=== PATIENT | male | born 1940 | race Caucasian/White ===

== ENCOUNTER 2016-08-22 01:38 | Emergency (ER) | payer MEDICARE ==
[~2016-08-22] VITALS: Ht 170.2 cm; Wt 104.0 kg
[~2016-08-22 01:38] MED LIST: ALBU1AER INH; ATEN-100 PO; ATOR20TA42 PO; DOXA1 PO; FURO10S PO; IBUP-238 PO; MIRA0.5T PO; OMEP20TA39 PO; POTA-267 PO; SPIR50TA21 PO; [UNRECOGNIZED DRUG - CODE] IM
[2016-08-22 01:40] VITALS: BP 183/81; PULSE 70; RESP 18; TEMP 98; O2SAT 96
[2016-08-22 05:50] VITALS: BP 149/74; PULSE 55; RESP 18; TEMP 98.1; O2SAT 96
[2016-08-23] MEDS ORDERED: ATOR20TA15 PO (07:12)
[2016-08-23] MEDS ORDERED: ATEN25TA PO (07:12)
[2016-08-23] MEDS ORDERED: DOXA1TAB43 PO (07:12)
[2016-08-23] MEDS ORDERED: SPIR50TA PO (07:12)
[2016-08-23] MEDS ORDERED: FURO20TA PO (07:12)
[2016-08-23] MEDS ORDERED: POTA10TA2 PO (07:12)
[2016-08-23] MEDS ORDERED: PRAM1TAB PO (07:12)
== END 2016-08-22 07:15 | disposition left against medical advice (07) ==
LOC: NED 01:38
DX: Z53.21 Procedure and treatment not carried out due to patient leaving prior to being seen by health care provider (principal)
CPT/HCPCS: 99281

== ENCOUNTER 2016-08-23 06:28 | Observation (INO) | payer MEDICARE ==
[~2016-08-23] VITALS: Ht 170.2 cm; Wt 110.0 kg
[2016-08-23] VITALS (9 sets, daily range): BP systolic 113–171; BP diastolic 69–95; PULSE 60–88; RESP 16–20; TEMP 97.4–99; O2SAT 93–100
[2016-08-23] MEDS ORDERED: PRAM1TAB PO (07:12)
[2016-08-23] MEDS ORDERED: ATEN25TA PO (07:12)
[2016-08-23] MEDS ORDERED: ATOR20TA15 PO (07:12)
[2016-08-23] MEDS ORDERED: DOXA1TAB43 PO (07:12)
[2016-08-23] MEDS ORDERED: SPIR50TA PO (07:12)
[2016-08-23] MEDS ORDERED: FURO20TA PO (07:12)
[2016-08-23] MEDS ORDERED: POTA10TA2 PO (07:12)
[2016-08-23] MEDS ORDERED: SODIUM CHLOR 0.9% 1000 ML INJ 1,000 ML IV ONE (07:16)
--- NOTE | 2016-08-23 07:29 | PD ---
HPI Chief Complaint: Syncope/Near-Syncope Time Seen by Provider: 07:07 Travel History International Travel<30 days: No Contact w/Intl Traveler<30days: No Traveled to known affect area: No History of Present Illness HPI Patient is a 75-year-old male with history of hypertension and hyperlipidemia and prostate cancer (on Lupron 4x per yaer) who presents to emergency room with complaints of multiple episodes syncopal episodes. Patient reports that over the past 3 weeks, he has had multiple episodes of syncope. Patient reports that episodes have been progressively getting worse, reports that he had 10 syncopal episodes last night. Patient reports that last night, he had a syncopal episode and fell and hit his head and his left hip. Patient reports that now his left hip hurts him, reports that he is able to ambulate only with pain with range of motion to his left hip. Reports that he is not on any anticoagulation. Reports that he did follow up with his primary care doctor and patient due to his syncopal episodes due to medication, reports that he was on Pramapixol for Restless Leg Syndrome. Reports that his primary care doctor stopped his pramipexole which he has been taking for the past few years and changed him to gabapentin yesterday. Patient concerned as his symptoms are more often and getting progressively worse. Patient denies headache or dizziness or vision changes with this symptoms, denies chest pain or shortness of breath. Patient denies any abdominal pain or nausea or vomiting. Patient with no fevers or chills. Patient with no recent travels or trips. PFSH Past Medical History Cancer: Yes (PROSTATE) Cardiovascular Problems: Yes (HTN) High Cholesterol: Yes Diabetes: No Diminished Hearing: No Endocrine: No Gastrointestinal Disorders: Yes (GERD) Genitourinary: Yes (PROSTATE CANCER) Hepatitis: No Hiatal Hernia: Yes (REPAIRED) Hypertension: Yes Immune Disorder: No Medical other: No Musculoskeletal: Yes (BACK SX, ARTHRITIS) Neurologic: No Psychiatric: No Reproductive: No Respiratory: Yes (SLEEP APNEA/ CPAP) Immunizations Current: Yes Thyroid Disease: No ?: Not Past Surgical History AICD: No Eye Surgery: Yes (EMMA. CATARACT EXTRACT.) Genitourinary Surgery: Yes (PROSTATE BX 2011) Joint Replacement: No Neurologic Surgery: Yes (L4-3 SPUR EXC.) Pacemaker: No Tonsillectomy: Yes Other Surgery: Yes (HIATAL HERNIA, PILONIDAL CYST) Social History Alcohol Use: Yes (1 GLASS OF WINE DAILY) Tobacco Use: No Substance Use: No Allergies-Medications (Allergen,Severity, Reaction): Coded Allergies: Penicillin (Verified Allergy, Severe, Rash, 08/23/16) SWELLING HANDS Reported Meds & Prescriptions Reported Meds & Active Scripts Active Reported Pramipexole (Pramipexole Dihydrochloride) 1 Mg Tab 1 Mg PO HS Atenolol 25 Mg Tab 25 Mg PO DAILY Doxazosin (Doxazosin Mesylate) 8 Mg Tab 8 Mg PO DAILY Atorvastatin (Atorvastatin Calcium) 20 Mg Tab 20 Mg PO HS Furosemide 20 Mg Tab 20 Mg PO BID Potassium Chloride ER (Potassium Chloride) 10 Meq Tab 10 Meq PO BID Spironolactone 50 Mg Tab 50 Mg PO DAILY Review of Systems General / Constitutional: No: Fever Eyes: No: Visual changes HENT: No: Headaches Cardiovascular: No: Chest Pain or Discomfort, Palpitations, Tachycardia, Diaphoresis Respiratory: No: Shortness of Breath Gastrointestinal: No: Nausea, Vomiting, Diarrhea, Abdominal Pain Genitourinary: No: Urgency, Frequency, Dysuria Musculoskeletal: Positive: Limited ROM (left hip), Pain (left hip) Skin: No Rash Neurologic: Positive: Syncope, No: Weakness Psychiatric: No: Depression Endocrine: No: Polydipsia Hematologic/Lymphatic: No: Easy Bruising Physical Exam Narrative GENERAL: NAD, Nontoxic SKIN: Warm and dry. HEAD: Atraumatic. Normocephalic. EYES: Pupils equal and round. No scleral icterus. No injection or drainage. ENT: No nasal bleeding or discharge. Mucous membranes pink and moist. NECK: Trachea midline. No JVD. CARDIOVASCULAR: Regular rate and rhythm. No murmur appreciated. RESPIRATORY: No accessory muscle use. Clear to auscultation. Breath sounds equal bilaterally. GASTROINTESTINAL: Abdomen soft, non-tender, nondistended. Hepatic and splenic margins not palpable. MUSCULOSKELETAL: No obvious deformities. No clubbing. No cyanosis. No edema. Patient with pain with range of motion to left hip, patient does have a bruise to his left lateral hip, no obvious deformities, pulses intact. Right lower extremity: Normal range of motion NEUROLOGICAL: Awake and alert. No obvious cranial nerve deficits. Motor grossly within normal limits. Normal speech. PSYCHIATRIC: Appropriate mood and affect; insight and judgment normal. Data Data Last Documented VS Vital Signs Date Time Temp Pulse Resp B/P Pulse Ox O2 Delivery O2 Flow Rate FiO2 08/23/16 07:31 71 18 139/76 100 Room Air 08/23/16 06:35 99.0 Orders Electrocardiogram (08/23/16 07:16) Complete Blood Count With Diff (08/23/16 07:16) Comprehensive Metabolic Panel (08/23/16 07:16) Magnesium (Mg) (08/23/16 07:16) B-Type Natriuretic Peptide (08/23/16 07:16) Ckmb (Isoenzyme) Profile (08/23/16 07:16) Troponin I (08/23/16 07:16) Act Partial Throm Time (Ptt) (08/23/16 07:16) Prothrombin Time / Inr (Pt) (08/23/16 07:16) Urinalysis - C+S If Indicated (08/23/16 07:16) Chest, Single Ap (08/23/16 07:16) Ct Brain W/O Iv Contrast(Rout) (08/23/16 07:16) Ecg Monitoring (08/23/16 07:16) Iv Access Insert/Monitor (08/23/16 07:16) Oximetry (08/23/16 07:16) Sodium Chloride 0.9% Flush (Ns Flush) (08/23/16 07:30) Sodium Chlor 0.9% 1000 Ml Inj (Ns 1000 M (08/23/16 07:16) Morphine Inj (Morphine Inj) (08/23/16 07:30) Hip, Uni(Ap&Lat) W Ap Pelvis (08/23/16 ) CKMB (08/23/16 07:54) CKMB% (08/23/16 07:54) Aspirin (Aspirin) (08/23/16 08:45) Labs Laboratory Tests Test 08/23/16 08/23/16 07:43 07:54 Urine Collection Type CLEAN CATCH Urine Color YELLOW Urine Turbidity CLEAR Urine pH 6.0 Urine Specific [place] 1.012 Urine Protein NEG mg/dL Urine Glucose (UA) NEG mg/dL Urine Ketones NEG mg/dL Urine Occult Blood TRACE Urine Nitrite NEG Urine Bilirubin NEG Urine Leukocyte Esterase NEG Urine RBC 0-3 /hpf Urine Squamous Epithelial 0-5 /hpf Cells Microscopic Urinalysis Comment CULT NOT INDICATED White Blood Count 10.9 TH/MM3 Red Blood Count 4.79 MIL/MM3 Hemoglobin 14.3 GM/DL Hematocrit 42.6 % Mean Corpuscular Volume 88.9 FL Mean Corpuscular Hemoglobin 29.9 PG Mean Corpuscular Hemoglobin 33.6 % Concent Red Cell Distribution Width 15.4 % Platelet Count 288 TH/MM3 Mean Platelet Volume 7.9 FL Neutrophils (%) (Auto) 74.4 % Lymphocytes (%) (Auto) 14.5 % Monocytes (%) (Auto) 7.1 % Eosinophils (%) (Auto) 1.8 % Basophils (%) (Auto) 2.2 % Neutrophils # (Auto) 8.1 TH/MM3 Lymphocytes # (Auto) 1.6 TH/MM3 Monocytes # (Auto) 0.8 TH/MM3 Eosinophils # (Auto) 0.2 TH/MM3 Basophils # (Auto) 0.2 TH/MM3 CBC Comment DIFF FINAL Differential Comment Prothrombin Time 10.4 SEC Prothromb Time International 0.9 RATIO Ratio Activated Partial 25.4 SEC Thromboplast Time Sodium Level 138 MEQ/L Potassium Level 4.8 MEQ/L Chloride Level 106 MEQ/L Carbon Dioxide Level 23.1 MEQ/L Anion Gap 9 MEQ/L Blood Urea Nitrogen 12 MG/DL Creatinine 1.10 MG/DL Estimat Glomerular Filtration 65 ML/MIN Rate Random Glucose 115 MG/DL Calcium Level 8.8 MG/DL Magnesium Level 2.6 MG/DL Total Bilirubin 0.4 MG/DL Aspartate Amino Transf 37 U/L (AST/SGOT) Alanine Aminotransferase 47 U/L (ALT/SGPT) Alkaline Phosphatase 112 U/L Total Creatine Kinase 157 U/L Creatine Kinase MB 2.4 NG/ML Troponin I LESS THAN 0.02 NG/ML B-Type Natriuretic Peptide 49 PG/ML Total Protein 6.6 GM/DL Albumin 3.4 GM/DL MDM Medical Decision Making Medical Screen Exam Complete: Yes Emergency Medical Condition: Yes Interpretation(s) EKG at 0807: NSR at 77bpm, qt/qtc: 376/405, no acute st changes, t wave inversion V1-V2 (EKG similar to previous) Vital Signs Date Time Temp Pulse Resp B/P Pulse Ox O2 Delivery O2 Flow Rate FiO2 08/23/16 07:03 77 16 142/85 97 08/23/16 06:35 99.0 88 16 123/77 96 Room Air Differential Diagnosis ACS, arrhythmia, electrolyte abnormality, intracranial hemorrhage, TIA, hip fracture Narrative Course Patient is a 75-year-old male with history of hypertension and hyperlipidemia who presents to emergency room with complaints of multiple episodes syncopal episodes for the past few weeks. Patient reports that he had 10 syncopal episodes last night and fell and hit his head and left hip. Patient reports concern as symptoms have been more frequent. Patient did follow up with primary care doctor and concern was that symptoms were due to medications which he was taken for the past few years. His medications were changed yesterday but patient reports that he continues to have episodes of syncope. Patient here for evaluation of syncope. Patient was placed on a cardiac cath rn upon arrival to the emergency room. EKG , labs as well as cardiac enzymes and x-ray of ct of head ordered for evaluation of symptoms. X-ray of his left hip ordered for evaluation of possible fracture as patient reports pain to left hip after fall yesterday. Physician Communication Physician Communication Case reviewed with Dr. Quinones - annemarie pt to service Diagnosis Primary Impression: Syncope and collapse Admitting Information Admitting Physician Requests: Observation Tammy Ocampo DO Aug 23, 2016 07:28
[2016-08-23] MEDS ORDERED: MORPHINE SULFATE 4 MG/ML INJ IV PUSH ONE (07:30)
[2016-08-23] MEDS ORDERED: SODIUM CHLORIDE 0.9% FLUSH 5 ML FLUSH IVF PRN (07:30)
[2016-08-23 07:49] LABS: BLOOD, URINE TRACE (NEG); GLUCOSE,URINE NEG (NEG); KETONE, URINE NEG (NEG); NITRITE,URINE NEG (NEG)
[2016-08-23 07:51] LABS: METHOD OF COLLECTION CLEAN CATCH; URINE COLOR YELLOW (YELLW/STRAW)
[2016-08-23 07:53] LABS: COMMENT (UR) CULT NOT INDICATED; CULTURE IF INDICATED CULT NOT INDICATED; RBC, URINE 0-3 /hpf (0-3); SQUAMOUS EPITHELIAL CELL URINE 0-5 /hpf (0-5)
--- NOTE | 2016-08-23 08:00 | RADHPO ---
EXAM DATE/TIME: 08/23/2016 07:29 [facility] COMPARISON: No previous studies available for comparison. INDICATIONS : Syncopal episode. Recent multiple falls. RADIATION DOSE: 60.87 CTDIvol (mGy) MEDICAL HISTORY : Hypertension. Gastroesophageal reflux disease. Carcinoma, prostate. SURGICAL HISTORY : Hiatal hernia repair. ENCOUNTER: Initial ACUITY: 1 day PAIN SCALE: 0/10 LOCATION: cranial TECHNIQUE: Multiple contiguous axial images were obtained of the head. Using automated exposure control and adj ustment of the mA and/or kV according to patient size, radiation dose was kept as low as reasonably a chievable to obtain optimal diagnostic quality images. FINDINGS: CEREBRUM: The ventricles are normal for age. No evidence of midline shift, mass lesion, hemorrhage or acute in farction. No extra-axial fluid collections are seen. POSTERIOR FOSSA: The cerebellum and brainstem are intact. The 4th ventricle is midline. The cerebellopontine angle i s unremarkable. EXTRACRANIAL: The visualized portion of the orbits is intact. There are multiple tiny calcified nodules within the left ethmoid air cells measuring 4 mm, right ethmoid air cells measuring 6 mm and left frontal sinus measuring 6 mm consistent with probable osteomas. SKULL: The calvaria is intact. No evidence of skull fracture. CONCLUSION: 1. No acute intracranial abnormality. 2. Multiple tiny calcified nodules within the bilateral ethmoid air cells and left frontal sinus rang ing in size from 4 to 6 mm consistent with probable osteomas. Naif Christine MD on August 23, 2016 at 7:55 Board Certified Radiologist. This report was verified electronically.
[2016-08-23 08:08] LABS: AUTOMATED NEUTROPHIL # 8.1 TH/MM3 (1.8-7.7); BASOPHIL # 0.2 TH/MM3 (0-0.2); BASOPHIL % 2.2 % (0.0-2.0); EOSINOPHIL # 0.2 TH/MM3 (0-0.4); EOSINOPHIL % 1.8 % (0.0-4.0); HEMATOCRIT 42.6 % (39.0-51.0); HEMO FLAGS DIFF FINAL; LYMPH % 14.5 % (9.0-44.0); LYMPHOCYTE # 1.6 TH/MM3 (1.0-4.8); MEAN CELL VOLUME 88.9 FL (80.0-100.0); MEAN CORPUSCULAR HEMOGLOBIN 29.9 PG (27.0-34.0); MEAN CORPUSCULAR HGB CONC 33.6 % (32.0-36.0); MONO % 7.1 % (0.0-8.0); NEUT % 74.4 % (16.0-70.0); PLATELET COUNT 288 TH/MM3 (150-450); RED BLOOD COUNT 4.79 MIL/MM3 (4.50-5.90); RED CELL DISTRIBUTION WIDTH 15.4 % (11.6-17.2); WHITE BLOOD COUNT 10.9 TH/MM3 (4.0-11.0)
[2016-08-23 08:13] LABS: CHLORIDE 106 MEQ/L (98-107); SODIUM (NA) 138 MEQ/L (136-145)
[2016-08-23 08:17] LABS: ANION GAP 9 MEQ/L (5-15); APTT (PATIENT) 25.4 SEC (24.3-30.1); BICARBONATE 23.1 MEQ/L (21.0-32.0); BLOOD UREA NITROGEN 12 MG/DL (7-18); INTERNATIONAL NORMALIZED RATIO 0.9 RATIO; MAGNESIUM 2.6 MG/DL (1.5-2.5); PROTHROMBIN TIME - PATIENT 10.4 SEC (9.8-11.6)
[2016-08-23 08:20] LABS: ALT (GPT) 47 U/L (12-78); AST (GOT) 37 U/L (15-37); GLOMERULAR FILTRATION RATE 65 ML/MIN (>89); POTASSIUM 4.8 MEQ/L (3.5-5.1)
[2016-08-23 08:24] LABS: TOTAL BILIRUBIN ADULT 0.4 MG/DL (0.2-1.0)
[2016-08-23 08:25] LABS: ALKALINE PHOSPHATASE 112 U/L (45-117); CREATINE KINASE 157 U/L (39-308)
[2016-08-23 08:37] LABS: CKMB 2.4 NG/ML (0.5-3.6)
[2016-08-23] MEDS ORDERED: ASPIRIN 325 MG TAB PO ONE (08:45)
--- NOTE | 2016-08-23 09:14 | RADHPO ---
EXAM DATE/TIME: 08/23/2016 07:41 [facility] COMPARISON: No previous studies available for comparison. INDICATIONS : Syncope, fell last night, pain left hip joint MEDICAL HISTORY : Hiatal hernia. SURGICAL HISTORY : right hip replacement ENCOUNTER: Initial ACUITY: 1 day PAIN SCORE: 8/10 LOCATION: Left hip FINDINGS: Examination of the left hip was performed with AP Pelvis. The primary and secondary trabecular patte rn of the femoral neck is intact. The hip joint is of normal width without significant sclerosis or bony hypertrophy. The acetabulum is grossly intact. There is diffuse osteopenia. The patient is stat us post right hip arthroplasty. CONCLUSION: Osteopenia with no acute fracture or malalignment. Shun Newberry MD on August 23, 2016 at 9:11 Board Certified Radiologist. This report was verified electronically.
--- NOTE | 2016-08-23 09:15 | RADHPO ---
EXAM DATE/TIME: 08/23/2016 07:39 [facility] COMPARISON: CHEST SINGLE AP, April 26, 2014, 1:08. INDICATIONS : Syncope, fall last night, short of breath MEDICAL HISTORY : Hiatal hernia. SURGICAL HISTORY : right hip replacement ENCOUNTER: Initial ACUITY: 1 day PAIN SCORE: 0/10 LOCATION: Bilateral chest FINDINGS: A single view of the chest demonstrates the lungs to be symmetrically aerated without evidence of mas s, infiltrate or effusion. The cardiomediastinal contours are unremarkable. Osseous structures are intact. CONCLUSION: No acute disease. Shun Newberry MD on August 23, 2016 at 9:13 Board Certified Radiologist. This report was verified electronically.
[2016-08-23] MEDS ORDERED: SODIUM CHLORIDE 0.9% FLUSH 5 ML FLUSH IV PRN (09:45)
[2016-08-23] MEDS: SODIUM CHLOR 0.9% 1000 ML INJ 1,000 ML IV SCH ×2 (11:12→12:51)
[2016-08-23 11:35] LABS: CHLORIDE 109 MEQ/L (98-107); POTASSIUM 4.2 MEQ/L (3.5-5.1); SODIUM (NA) 141 MEQ/L (136-145)
[2016-08-23 11:39] LABS: ANION GAP 8 MEQ/L (5-15); BICARBONATE 24.2 MEQ/L (21.0-32.0)
--- NOTE | 2016-08-23 11:39 | RADHPO ---
EXAM DATE/TIME: 08/23/2016 10:30 [facility] COMPARISON: CTA CHEST W 3D RECON, September 24, 2012, 4:48. INDICATIONS : Syncope. MEDICAL HISTORY : Hypertension. Gastroesophageal reflux disease. Hypercholesterolemia. Sleep apnea. Prostate cancer. Ar thritis. SURGICAL HISTORY : Tonsillectomy. Cataract removal. L3-4 spur extraction. Hiatal hernia repair. Prostate biopsy. Rig ht hip replacement. Pilonidal cyst removal. ENCOUNTER: Initial ACUITY: 1 week PAIN SCORE: 0/10 LOCATION: Bilateral neck PEAK SYSTOLIC VELOCITIES (cm/sec): ICA/CCA RATIO: Right: 1.3 Left: 1.3 ICA: Right: 90 Left: 79 CCA: Right: 71 Left: 60 ECA: Right: 99 Left: 89 VERTEBRAL: Right: 56 antegrade Left: 52 antegrade Elevated flow velocities and ICA/CCA ratios have been found to correlate with increased degrees of vessel stenosis, calculated as percentage of diameter relative to a normal segment of distal ICA/CCA FINDINGS: Suboptimal examination due to 2 continued motion artifact. RIGHT CAROTID: Mild plaque is present in the right carotid bulb with no evidence of stenosis. The waveforms are with in normal limits. LEFT CAROTID: No significant stenosis is visualized. The waveforms are within normal limits. VERTEBRAL ARTERIES: Antegrade flow is seen in both vertebral arteries. MISCELLANEOUS: Rounded hyperechoic mass in the left lobe of the thyroid gland measuring up to 1.9 x 2.1 cm with aure pheral color flow. This was seen on the prior chest CT and measured up to 1.7 cm. CONCLUSION: 1. Mild plaquing with no evidence of stenosis. 2. Mass in left lobe of the thyroid which appears more prominent than on the prior 2013 CT angiogram. This is nonspecific. Shun Newberry MD on August 23, 2016 at 11:35 Board Certified Radiologist. This report was verified electronically.
[2016-08-23 11:40] LABS: BLOOD UREA NITROGEN 11 MG/DL (7-18)
[2016-08-23 11:42] LABS: ALT (GPT) 39 U/L (12-78); AST (GOT) 21 U/L (15-37)
[2016-08-23 11:43] LABS: GLOMERULAR FILTRATION RATE 81 ML/MIN (>89)
[2016-08-23 11:44] LABS: TOTAL BILIRUBIN ADULT 0.3 MG/DL (0.2-1.0)
[2016-08-23 11:45] LABS: ALKALINE PHOSPHATASE 105 U/L (45-117)
[2016-08-23] MEDS ORDERED: GADODIAMIDE PF 287 MG/ML 20 ML VIAL (for RAD MRI) IV ONE (11:53)
--- NOTE | 2016-08-23 12:12 | RADHPO ---
EXAM DATE/TIME: 08/23/2016 11:46 [facility] COMPARISON: No previous studies available for comparison. INDICATIONS : Syncope. Patient claims to have around 30 syncopal episodes per night for the last two weeks. CONTRAST: 20 cc Omniscan (gadodiamide) IV MEDICAL HISTORY : Hypertension. Hypercholesterolemia. SURGICAL HISTORY : Right hip, right knee, hiatal hernia repair, back surgery and TURP. ENCOUNTER: Initial ACUITY: 2 weeks PAIN SCORE: 0/10 LOCATION: Head. TECHNIQUE: Multiplanar, multisequence MRI of the brain was performed both prior to and following the administrat ion of paramagnetic contrast. Please note, image sequences are somewhat degraded by motion artifact b ut are still interpretable. FINDINGS: CEREBRUM: The ventricles are normal for age. No evidence of midline shift, mass lesion, hemorrhage or acute in farction. No extraaxial fluid collections are seen. The pituitary gland and suprasellar cistern are normal in configuration. WHITE MATTER: No significant signal abnormalities are seen in the white matter. POSTERIOR FOSSA: The cerebellum and brainstem are intact. The 4th ventricle is midline. The cerebellopontine angle is unremarkable. The cerebellar tonsils are normal in position. DIFFUSION IMAGING: No focal areas of restricted diffusion are seen. No evidence of acute infarction. EXTRACRANIAL: The visualized portions of the orbits and paranasal sinuses are unremarkable. POST-CONTRAST: No abnormal areas of parenchymal or dural enhancement. No evidence of blood-brain barrier breakdown. CONCLUSION: No acute intracranial process to explain clinical symptoms there is no free Sco from the Elizabeth Pena MD on August 23, 2016 at 12:08 Board Certified Radiologist. This report was verified electronically.
--- NOTE | 2016-08-23 13:42 | EKG ---
Date Performed: 08/23/2016 Time Performed: 08:07:34 PTAGE: 75 years EKG: BASELINE ARTIFACT PRESENT. Sinus rhythm Septal T wave changes are nonspecific Borderline ECG NO PREVIOUS TRACING DOCTOR: James Chapman Interpretating Date/Time 08/23/2016 13:40:08
[2016-08-23] MEDS: SODIUM CHLORIDE 0.9% FLUSH 5 ML FLUSH IV SCH (21:00)
[2016-08-23] MEDS: ATORVASTATIN 20 MG TAB PO SCH (21:38)
[2016-08-24] VITALS: BP 128/78; PULSE 65; RESP 18; TEMP 97.8; O2SAT 97
[2016-08-24] MEDS: SODIUM CHLOR 0.9% 1000 ML INJ 1,000 ML IV SCH ×2 (05:36→08:51)
[2016-08-24 05:47] LABS: AUTOMATED NEUTROPHIL # 5.9 TH/MM3 (1.8-7.7); BASOPHIL % 0.5 % (0.0-2.0); EOSINOPHIL # 0.2 TH/MM3 (0-0.4); EOSINOPHIL % 2.8 % (0.0-4.0); HEMATOCRIT 43.2 % (39.0-51.0); HEMO FLAGS DIFF FINAL; LYMPH % 22.5 % (9.0-44.0); LYMPHOCYTE # 1.9 TH/MM3 (1.0-4.8); MEAN CELL VOLUME 90.2 FL (80.0-100.0); MEAN CORPUSCULAR HEMOGLOBIN 30.5 PG (27.0-34.0); MEAN CORPUSCULAR HGB CONC 33.8 % (32.0-36.0); MONO % 7.2 % (0.0-8.0); PLATELET COUNT 287 TH/MM3 (150-450); RED BLOOD COUNT 4.79 MIL/MM3 (4.50-5.90); RED CELL DISTRIBUTION WIDTH 15.1 % (11.6-17.2); WHITE BLOOD COUNT 8.6 TH/MM3 (4.0-11.0)
[2016-08-24 08:00] VITALS: BP_SYST 123; BP_SYST 125; BP_DIAS 79; BP_DIAS 92; PULSE 65; PULSE 85; RESP 20; TEMP 97.3; O2SAT 99
[2016-08-24] MEDS: ATENOLOL 25 MG TAB PO SCH (08:50)
[2016-08-24] MEDS: POTASSIUM CHLORIDE 10 MEQ CONTROLLED RELEASE TAB PO SCH ×2 (08:50→20:59)
[2016-08-24] MEDS: SPIRONOLACTONE 50 MG TAB PO SCH (08:50)
[2016-08-24] MEDS: SODIUM CHLORIDE 0.9% FLUSH 5 ML FLUSH IV SCH ×2 (08:50→20:59)
[2016-08-24] MEDS: DOXAZOSIN MESYLATE 4 MG TAB PO SCH (08:50)
[2016-08-24] MEDS: FUROSEMIDE 20 MG TAB PO SCH ×2 (08:50→20:59)
[2016-08-24 12:00] VITALS: BP 125/89; PULSE 77; RESP 18; TEMP 97.6; O2SAT 98
--- NOTE | 2016-08-24 15:01 | EC ---
Study Study Date:08/24/2016 STUDY CONCLUSIONS SUMMARY - Left ventricle: The cavity size was normal. Wall thickness was normal. Systolic function was mildly reduced. The estimated ejection fraction was in the range of 45% to 50%. Wall motion was normal; there were no regional wall motion abnormalities. - Aortic valve: Valve area: 2.77cm^2 (Vmax). - Mitral valve: Mild regurgitation. - Tricuspid valve: Mild regurgitation. If LV function is below 40, please consider prescribing an ACEI or ARB or document rationale for non-use. PROCEDURE DATA STUDY STATUS: Elective. Procedure: Transthoracic echocardiography. Image quality was good. Scanning was performed from the parasternal, apical, and subcostal acoustic windows. Study completion: The patient tolerated the procedure well. Transthoracic echocardiography. M-mode, complete 2D, complete spectral Doppler, and color Doppler. Patient status: Inpatient. CARDIAC ANATOMY LEFT VENTRICLE: The cavity size was normal. Wall thickness was normal. Systolic function was mildly reduced. The estimated ejection fraction was in the range of 45% to 50%. Wall motion was normal; there were no regional wall motion abnormalities. AORTIC VALVE: Trileaflet; normal thickness leaflets. Doppler: Transvalvular velocity was within the normal range. There was no stenosis. No regurgitation. Valve area: 2.77cm^2 (Vmax). AORTA: Aortic root: The aortic root was normal in size. MITRAL VALVE: Structurally normal valve. Doppler: Transvalvular velocity was within the normal range. There was no evidence for stenosis. Mild regurgitation. Peak gradient: 3mm Hg (D). LEFT ATRIUM: The atrium was normal in size. RIGHT VENTRICLE: The cavity size was normal. Wall thickness was normal. PULMONIC VALVE: Doppler: Transvalvular velocity was within the normal range. There was no evidence for stenosis. No regurgitation. TRICUSPID VALVE: Structurally normal valve. Doppler: Transvalvular velocity was within the normal range. Mild regurgitation. PULMONARY ARTERY: The main pulmonary artery was normal-sized. Systolic pressure was within the normal range. RIGHT ATRIUM: The atrium was normal in size. PERICARDIUM: There was no pericardial effusion. SYSTEMIC VEINS: Inferior vena cava: The vessel was normal in size. BASIC MEASUREMENTS ADULT NORMAL Left ventricle LV internal dimension, ED, chordal level, 49.5 mm 43-52 PLAX LV internal dimension, ES, chordal level, *40.3 mm 23-38 PLAX Fractional shortening, chordal level, PLAX *19 % >29 LV posterior wall thickness, ED 9.52 mm IVS/LVPW ratio, ED 0.99 <1.3 Ventricular septum Septal thickness, ED 9.45 mm Aortic valve Leaflet separation 21 mm 15-26 BASIC MEASUREMENTS ADULT NORMAL Aortic valve Leaflet separation 21 mm 15-26 Aorta Root diameter, ED 25 mm 20-37 Left atrium Anterior-posterior dimension, ES 38 mm 19-40 LA/aortic root ratio 1.52 DOPPLER MEASUREMENTS ADULT NORMAL Main pulmonary artery Pressure, S 29 mm Hg =30 Aortic valve Peak velocity, S 137 cm/s Valve area, Vmax 2.77 cm^2 Mitral valve Peak E-wave velocity 88.8 cm/s Peak A-wave velocity 110 cm/s Deceleration time 165 ms 150-230 Peak gradient, D 3 mm Hg Peak E/A ratio 0.8 Maximal regurgitant velocity 235 cm/s Tricuspid valve Regurgitant peak velocity 216 cm/s Peak RV-RA gradient, S 19 mm Hg Maximal regurgitant velocity 216 cm/s Systemic veins Estimated CVP 10 mm Hg Right ventricle RV pressure, S 29 mm Hg <30 LEGEND: Mean values are shown as u=mean value. Asterisk (*) negron values outside specified normal range. Prepared and signed by Tuan Cárdenas [id number]
[2016-08-24 16:00] VITALS: BP 148/83; PULSE 56; RESP 16; TEMP 96.5; O2SAT 96
[2016-08-24] MEDS: ACETAMINOPHEN/HYDROcodone 325 MG/5 MG TAB PO PRN (16:16)
[2016-08-24 20:00] VITALS: BP_SYST 139; BP_SYST 140; BP_SYST 169; BP_DIAS 64; BP_DIAS 89; BP_DIAS 90; PULSE 57; PULSE 60; RESP 20; TEMP 98.1; O2SAT 97
[2016-08-24] MEDS: ATORVASTATIN 20 MG TAB PO SCH (20:59)
[2016-08-25] VITALS (10 sets, daily range): BP systolic 142–189; BP diastolic 79–93; PULSE 55–70; RESP 16–20; TEMP 97–98.6; O2SAT 94–97
[2016-08-25] MEDS: ACETAMINOPHEN/HYDROcodone 325 MG/5 MG TAB PO PRN ×3 (00:31→21:27)
[2016-08-25 07:48] LABS: AUTOMATED NEUTROPHIL # 4.8 TH/MM3 (1.8-7.7); BASOPHIL % 0.6 % (0.0-2.0); EOSINOPHIL # 0.3 TH/MM3 (0-0.4); EOSINOPHIL % 4.1 % (0.0-4.0); HEMATOCRIT 42.8 % (39.0-51.0); HEMO FLAGS DIFF FINAL; LYMPH % 25.8 % (9.0-44.0); MEAN CORPUSCULAR HEMOGLOBIN 29.5 PG (27.0-34.0); MEAN CORPUSCULAR HGB CONC 32.8 % (32.0-36.0); MONO % 6.4 % (0.0-8.0); NEUT % 63.1 % (16.0-70.0); PLATELET COUNT 291 TH/MM3 (150-450); RED BLOOD COUNT 4.76 MIL/MM3 (4.50-5.90); RED CELL DISTRIBUTION WIDTH 15.6 % (11.6-17.2); WHITE BLOOD COUNT 7.6 TH/MM3 (4.0-11.0)
[2016-08-25 07:56] LABS: CHLORIDE 108 MEQ/L (98-107); POTASSIUM 4.1 MEQ/L (3.5-5.1); SODIUM (NA) 143 MEQ/L (136-145)
[2016-08-25 08:00] LABS: ANION GAP 9 MEQ/L (5-15); BICARBONATE 25.9 MEQ/L (21.0-32.0)
[2016-08-25 08:01] LABS: BLOOD UREA NITROGEN 12 MG/DL (7-18)
[2016-08-25 08:03] LABS: ALT (GPT) 43 U/L (12-78); AST (GOT) 20 U/L (15-37); GLOMERULAR FILTRATION RATE 85 ML/MIN (>89)
[2016-08-25 08:05] LABS: TOTAL BILIRUBIN ADULT 0.6 MG/DL (0.2-1.0)
[2016-08-25 08:06] LABS: ALKALINE PHOSPHATASE 95 U/L (45-117)
--- NOTE | 2016-08-25 08:15 | MG ---
cc: GINA DORMAN Lab No:[id number] Date: 08/24/2016 Age: 75 Sex: M Race: 75-year-old man. Awake, drowsy, asleep multiple episodes of syncope pramipexole, aspirin, a history of sleep apnea. At 9 Hz 60 microvolt symmetric posterior and diffuse rhythm is seen. Overall recording is synchronous and symmetric. Photic stimulation is performed without significant posterior driving. The patient falls asleep but does not reach stage II sleep, some right arm and leg movement is noted but this does not correlate with any seizure activity. IMPRESSION Normal awake and sleep EEG no evidence for focal or diffuse abnormality. MD EVERETTE Coates/landon /7:13 AM /8:03 AM
--- NOTE | 2016-08-25 08:48 | HHI.PR ---
Subjective History of Present Illness Patient feel better no acute issue. Review of Systems Constitutional Constitutional Remarks Obesity morbid. Vitals/Results Intake & Output 08/24/16 08/24/16 08/25/16 15:00 23:00 07:00 Output Total 600 ml Balance -600 ml Output Urine Total 600 ml Vital Signs Vital Signs Date Time Temp Pulse Resp B/P Pulse Ox O2 Delivery O2 Flow Rate FiO2 08/25/16 04:22 98.3 56 18 163/84 97 08/25/16 01:31 18 08/25/16 00:01 97.3 55 18 149/89 96 08/24/16 20:00 98.1 57 20 139/90 97 151/69 169/89 08/24/16 20:00 60 08/24/16 16:00 96.5 56 16 148/83 96 08/24/16 12:00 97.6 77 18 125/89 98 CBC/BMP: 08/25/16 0648 08/25/16 0648 Lab Results Laboratory Tests Test 08/25/16 06:48 White Blood Count 7.6 TH/MM3 Red Blood Count 4.76 MIL/MM3 Hemoglobin 14.0 GM/DL Hematocrit 42.8 % Mean Corpuscular Volume 90.0 FL Mean Corpuscular Hemoglobin 29.5 PG Mean Corpuscular Hemoglobin 32.8 % Concent Red Cell Distribution Width 15.6 % Platelet Count 291 TH/MM3 Mean Platelet Volume 7.9 FL Neutrophils (%) (Auto) 63.1 % Lymphocytes (%) (Auto) 25.8 % Monocytes (%) (Auto) 6.4 % Eosinophils (%) (Auto) 4.1 % Basophils (%) (Auto) 0.6 % Neutrophils # (Auto) 4.8 TH/MM3 Lymphocytes # (Auto) 2.0 TH/MM3 Monocytes # (Auto) 0.5 TH/MM3 Eosinophils # (Auto) 0.3 TH/MM3 Basophils # (Auto) 0.0 TH/MM3 CBC Comment DIFF FINAL Differential Comment Sodium Level 143 MEQ/L Potassium Level 4.1 MEQ/L Chloride Level 108 MEQ/L Carbon Dioxide Level 25.9 MEQ/L Anion Gap 9 MEQ/L Blood Urea Nitrogen 12 MG/DL Creatinine 0.87 MG/DL Estimat Glomerular Filtration 85 ML/MIN Rate Random Glucose 97 MG/DL Calcium Level 8.8 MG/DL Total Bilirubin 0.6 MG/DL Aspartate Amino Transf 20 U/L (AST/SGOT) Alanine Aminotransferase 43 U/L (ALT/SGPT) Alkaline Phosphatase 95 U/L Total Protein 5.9 GM/DL Albumin 3.0 GM/DL Physical Exam General General Appearance: Well Developed, Well Nourished, No Acute Distress, Comfortable Eyes Eye Exam: Pupils Equal, Pupils Reactive, Sclera White, Extraocular Movement Intact Throat Throat Exam: Oral Mucosa [place] & Moist, Oral Pharynx Normal Neck Neck Exam: Neck Supple, Trachea Midline Pulmonary Resp Exam: Clear Bilaterally, Breath Sounds Equal, No Distress Cardiology CV Exam: Regular, Normal Sinus Rhythm Gastrointestinal/Abdomen GI Exam: Soft, Non-Tender, Bowel Sounds Present Musculoskeletal MS Exam: Normal Tone Integumentary Skin Exam: Clear, Warm, Dry, Intact, Normal Turgor Extremeties Extremities Exam: No Edema Neurologic Neuro Exam: Alert, Awake, Oriented, Speech Clear, Moving All Extremities, No Focal Deficits PUD Prophylasis PUD Prophylaxis: Protonix Assessment/Plan Assessment/Plan ASSESSMENT/PLAN This is a 75-year-old male who came to the ER diagnosed with multiple syncopal episodes of unknown cause. CT brain and MRA of the brain does not show anything acute. Carotid ultrasound does not show anything acute. neurology and cardiology input noted for further recommendation. History of obstructive sleep apnea. History of prostate cancer. History of back pain and history of back pain and status post back surgery. History of gastroesophageal reflux disease. Protonix 40 mg p.o. daily. History of hypertension. Continue the home medication. Monitor blood pressure. History of hyperlipidemia. Continue home medication. DVT prophylaxis, SCDs. GI prophylaxis, Protonix 40 mg p.o. daily. Her check orthostatic blood pressure. We are going to manage the patient on a daily basis and make recommendations on a daily basis. Discussed Condition with: Patient Nickolas Quintanilla MD Aug 25, 2016 08:48
[2016-08-25] MEDS: SODIUM CHLORIDE 0.9% FLUSH 5 ML FLUSH IV SCH ×2 (09:00→21:00)
[2016-08-25] MEDS ORDERED: cloNIDine HCL 0.1 MG TAB PO PRN (09:15)
[2016-08-25] MEDS: FUROSEMIDE 20 MG TAB PO SCH ×2 (09:19→21:27)
[2016-08-25] MEDS: SPIRONOLACTONE 50 MG TAB PO SCH (09:20)
[2016-08-25] MEDS: ATENOLOL 25 MG TAB PO SCH (09:20)
[2016-08-25] MEDS: POTASSIUM CHLORIDE 10 MEQ CONTROLLED RELEASE TAB PO SCH ×2 (09:20→21:26)
[2016-08-25] MEDS: DOXAZOSIN MESYLATE 4 MG TAB PO SCH (09:20)
[2016-08-25] MEDS: DOCUSATE SODIUM 100 MG CAP PO SCH ×2 (09:37→21:27)
[2016-08-25] MEDS: POLYETHYLENE GLYCOL 17 GM PKG PO SCH (09:37)
[2016-08-25] MEDS: SODIUM CHLOR 0.9% 1000 ML INJ 1,000 ML IV SCH (14:39)
[2016-08-25 17:42] LABS: BLOOD GAS BASE EXCESS -0.3 mmol/L (-2-2); BLOOD GAS CARBOXYHEMOGLOBIN 0.1 % (0-4); BLOOD GAS HCO3 24 mmol/L (22-26); BLOOD GAS METHEMOGLOBIN 0.9 % (0-2); BLOOD GAS O2 HGB SATURATION 92 % (90-100); BLOOD GAS OXYGEN CONTENT 18.9 Vol % (12.0-20.0); BLOOD GAS PCO2 40 mmHG (38-42); BLOOD GAS PO2 85 mmHG (61-120); BLOOD GAS TOTAL HGB 14.5 G/DL (12.0-16.0); CRITICAL VALUE NO; DRAW SITE RT RADIAL; FIO2 21 %; NUMBER OF ARTERIAL PUNCTURES 2; OXYGEN DEVICE ROOM AIR; STAT YES; TEMP CORR TO 98.6; ULNAR PULSE PRESENT
--- NOTE | 2016-08-25 19:17 | MB ---
cc: GINA DORMAN DATE OF CONSULTATION: 08/25/2016. HISTORY OF PRESENT ILLNESS: A 75-year right-handed man with a history of hypertension, hypercholesterolemia, prostate cancer. He takes Lupron about four times a year, some GE reflux, history of obstructive sleep apnea. He has not been wearing his C-PAP for the last year because it leaks. For the last two years he has had what sounds like periodic leg movements of sleep at night. Sometimes he will fall out of bed and most recently in the last month or so he was falling out of bed almost every night, sometimes almost like a jerk he will be thrown out of bed. He was sitting in a chair and one time fell forward out of bed. He does have restless leg syndrome during the day and he has been on Mirapex for at least a year but has been tapering it off most recently. He has been with what sounds like possibly losing a brief period of consciousness. Sometimes when he is standing he will fall down due to that. It feels somewhat like he is falling asleep or like a light switch goes off. No chest pain or palpitations. He had a headache about a 6/10 for the last two days but before that not very often. He used to have migraines. He has not been otherwise ill. He has never woken up and wet the bed or bit his tongue. No odd smells, tastes or inocencia vu. When he hits the floor falling out of bed or out of his chair, he is awake and alert and oriented immediately. He has in the past, about three months ago when he was eating, evidently had an episode or fell asleep and wound up with his face in his food, although other times he is just sitting watching TV and he does not suddenly fall asleep or not while he is eating. He will take a nap after eating. Ten times yesterday he had episodes where he had these brief spells of apparent loss of consciousness or sudden onset of sleep. He had two episodes today where he was drawing or filling in a coloring book and he seemed to tail off and you can see where his pen went out of the line as he, I suspect, may have fallen asleep briefly. SOCIAL HISTORY: He is not a smoker. He will occasionally have a drink. He lives with his . FAMILY HISTORY: Positive for cancer. Negative for seizure or stroke. REVIEW OF SYSTEMS: There is no diabetes, myocardial infarction, stents, angioplasty, atrial fibrillation, coumadin, renal, hepatic disease, no underlying pulmonary disease that he knows of or COPD, no history of thyroid disease, lupus, ulcer, known seizure or stroke. He had some left chest pain in 2013. He noted he had some dyslipidemia at that time. He thought he had atypical chest pain. In January of 2016, he fell out of bed and hurt the left side of his chest. MEDICATIONS: He is currently on: 1. MiraLax. 2. Colace. 3. Catapres PRN. 4. Tenormin. 5. Cardura. 6. Lasix. 7. Aldactone. 8. Lipitor. 9. He had some [place] today. I am going to stop that. PHYSICAL EXAMINATION: GENERAL: He is moderately obese. VITAL SIGNS: He has been in sinus rhythm here, afebrile, 57, 19. It was a little bit lower pulse than he usually has. 02 sat is 96%. Standing blood pressure 189/93. NECK: There are no carotid bruits. HEART: Regular rhythm. I do not detect a murmur. NEUROLOGICAL EXAMINATION: Discs are sharp. Pupils are equal. Visual swan are full. Extraocular movements intact without nystagmus. Face is symmetric with normal sensation. Tongue was midline. There is no drift. He had normal strength in upper and lower extremities bilaterally. DTRs are trace throughout. Toes are downgoing bilaterally. Pin prick was intact throughout as was vibratory sense and proprioception. He is not ataxic on [id number]. There was no asterixis. Speech is fluent. He is not aphasic. LABS: CBC is normal. He had a normal sedimentation rate back in 2012. Urinalysis is negative on this admission. Coags are normal on this admission. Basic metabolic profile showed a chloride of 108, otherwise normal. Liver function tests normal. CPK and troponin negative. Albumin 3. IMAGING STUDIES: MRI of the brain was normal. Chest x-ray was negative. CT scan of the brain was normal. Carotid ultrasound was negative. X-rays of his hip did not show any fracture. EEG was also normal. Echocardiogram showed an ejection fraction of 45% to 50%, otherwise normal. EKG suggests some T wave changes in the report. IMPRESSION: Unclear exactly what the events are. It sounds like he is having some parasomnias and he says he has only slept about two hours a night because he is afraid he is going to fall out of bed. As such, the sudden onset of sleep from the is a consideration. Small complex partial seizures could be considered. It sounds like it is not a primary cardiac rhythm problem as he has been in sinus rhythm here. A metabolic abnormality due to his history of a selective sleep apnea could be considered. Will check an ABG to make sure he is not hypercapnic and some other blood work. We can do a monitor and EEG for 24 hours and see if he is having any small seizures during these spells and his Mirapex at this point has been stopped. I would not give him any narcotics or sedative medications at this time. If we do not find anything else, we could try him on some prophylactic seizure medication in case he is having frequent complex partial seizures, although I note his EEG initially here was normal. Will also put on oximeter on him. Check an ammonia level. I would defer to the med team about the T-wave abnormalities on the EKG. MD EVERETTE Coates/LEXUS /4:55 PM /6:56 PM
[2016-08-25] MEDS: ATORVASTATIN 20 MG TAB PO SCH (21:27)
[2016-08-25 21:58] LABS: FREE T4 1.28 NG/DL (0.76-1.46); TOTAL PROTEIN SPE 5.9 GM/DL (6.0-7.6)
[2016-08-26] VITALS (7 sets, daily range): BP systolic 126–139; BP diastolic 76–80; PULSE 55–70; RESP 18–21; TEMP 97.2–98; O2SAT 94–97
[2016-08-26] MEDS ORDERED: diphenhydrAMINE HCL 25 MG CAP PO PRN (00:45)
[2016-08-26] MEDS ORDERED: ACETAMINOPHEN 325 MG TAB PO PRN (01:30)
[2016-08-26] MEDS ORDERED: ACETAMINOPHEN/HYDROcodone 325 MG/5 MG TAB PO PRN (01:45)
--- NOTE | 2016-08-26 08:55 | HHI.PR ---
Subjective History of Present Illness Patient feel better wants to go home ..ok to DC Per cardiology/ Neurology. ok to DC Home today. Review of Systems Constitutional Constitutional Remarks Morbid Obesity. Vitals/Results Intake & Output 08/25/16 08/25/16 08/26/16 15:00 23:00 07:00 Intake Total 2027 ml 320 ml Output Total 450 ml Balance 2027 ml -130 ml IV Total 2027 ml 320 ml Output Urine Total 450 ml # Voids 6 # Bowel Movements 1 Vital Signs Vital Signs Date Time Temp Pulse Resp B/P Pulse Ox O2 Delivery O2 Flow Rate FiO2 08/26/16 08:00 97.5 69 19 139/80 97 08/26/16 07:40 97 21 08/26/16 04:00 98.0 70 18 138/80 97 08/26/16 00:47 97.6 63 20 133/76 96 08/25/16 20:53 98.6 60 16 142/81 96 150/79 08/25/16 20:30 97 Room Air 21 08/25/16 20:03 61 08/25/16 17:30 96 Room Air 21 08/25/16 16:00 62 19 150/79 94 08/25/16 12:00 97.2 57 19 150/80 95 08/25/16 09:30 56 CBC/BMP: 08/25/16 0648 08/25/16 0648 Lab Results Laboratory Tests Test 08/25/16 08/25/16 17:35 18:00 Blood Gas Puncture Site RT RADIAL Blood Gas Patient Temperature 98.6 Blood Gas HCO3 24 mmol/L Blood Gas Base Excess -0.3 mmol/L Blood Gas Oxygen Saturation 92 % Arterial Blood pH 7.40 Arterial Blood Partial 40 mmHG Pressure CO2 Arterial Blood Partial 85 mmHG Pressure O2 Arterial Blood Oxygen Content 18.9 Vol % Arterial Blood 0.1 % Carboxyhemoglobin Arterial Blood Methemoglobin 0.9 % Blood Gas Hemoglobin 14.5 G/DL Oxygen Delivery Device ROOM AIR Blood Gas Inspired Oxygen 21 % Erythrocyte Sedimentation Rate 8 mm/hr Ammonia 61 MCMOL/L Total Protein 5.9 GM/DL Vitamin B12 Level 329 PG/ML Free Thyroxine 1.28 NG/DL Thyroid Stimulating Hormone 0.940 uIU/ML 3rd Gen Physical Exam General General Appearance: Well Developed, Well Nourished, No Acute Distress, Comfortable Eyes Eye Exam: Pupils Equal, Pupils Reactive, Sclera White, Extraocular Movement Intact Throat Throat Exam: Oral Mucosa [place] & Moist, Oral Pharynx Normal Neck Neck Exam: Neck Supple, Trachea Midline Pulmonary Resp Exam: Clear Bilaterally, Breath Sounds Equal, No Distress Cardiology CV Exam: Regular, Normal Sinus Rhythm Gastrointestinal/Abdomen GI Exam: Soft, Non-Tender, Bowel Sounds Present Musculoskeletal MS Exam: Normal Tone Integumentary Skin Exam: Clear, Warm, Dry, Intact, Normal Turgor Neurologic Neuro Exam: Alert, Awake, Oriented, Speech Clear, Moving All Extremities, No Focal Deficits Psychiatric Psych Exam: Appropriate Responses PUD Prophylasis PUD Prophylaxis: Protonix Assessment/Plan Assessment/Plan ASSESSMENT/PLAN This is a 75-year-old male who came to the ER diagnosed with multiple syncopal episodes of unknown cause. CT brain and MRA of the brain does not show anything acute. Carotid ultrasound does not show anything acute. neurology and cardiology input noted for further recommendation. History of obstructive sleep apnea. History of prostate cancer. History of back pain and history of back pain and status post back surgery. History of gastroesophageal reflux disease. Protonix 40 mg p.o. daily. History of hypertension. Continue the home medication. Monitor blood pressure. History of hyperlipidemia. Continue home medication. DVT prophylaxis, SCDs. GI prophylaxis, Protonix 40 mg p.o. daily. checked orthostatic blood pressure. Patient wants to go home ..ok to DC Per cardiology/ Neurology. ok to DC Home today. f/u with PCP/ Cardiology/ Neurology 1 week. condition at discharge good. Activity as tolerated. Diet Cardiac. Medicine see discharge medicine list. Discussed Condition with: Patient Nickolas Quintanilla MD Aug 26, 2016 08:55
[2016-08-26] MEDS: SODIUM CHLORIDE 0.9% FLUSH 5 ML FLUSH IV SCH (09:00)
[2016-08-26] MEDS: FUROSEMIDE 20 MG TAB PO SCH (09:30)
[2016-08-26] MEDS: ATENOLOL 25 MG TAB PO SCH (09:30)
[2016-08-26] MEDS: SPIRONOLACTONE 50 MG TAB PO SCH (09:30)
[2016-08-26] MEDS: DOXAZOSIN MESYLATE 4 MG TAB PO SCH (09:30)
[2016-08-26] MEDS: POTASSIUM CHLORIDE 10 MEQ CONTROLLED RELEASE TAB PO SCH (09:30)
[2016-08-26] MEDS: DOCUSATE SODIUM 100 MG CAP PO SCH (09:30)
[2016-08-26] MEDS: POLYETHYLENE GLYCOL 17 GM PKG PO SCH (09:30)
[2016-08-26] MEDS: SODIUM CHLOR 0.9% 1000 ML INJ 1,000 ML IV SCH (14:59)
--- NOTE | 2016-08-26 18:23 | MB ---
cc: SAMANTA NELSON MD DATE OF CONSULTATION: 08/26/2016. REASON FOR CONSULTATION: Possible syncope. HISTORY OF PRESENT ILLNESS: The patient is a very pleasant 75-year-old gentleman with no prior cardiac history except for possible syncopal episodes as described below. The patient says that over the last two years since starting medication for his restless legs, he has had upwards of 40 syncopal episodes, each lasting only a second or two but occurring in any position, seated, standing or lying down. The patient fortunately has not been driving. The patient had apparently been having worsening of the episodes over the last several weeks, which is why he presented to the emergency department. On the chance that these were cardiac related, I was consulted. The patient denies any other possible cardiac complaints such as chest pain, shortness of breath or palpitations, only these episodes as described above. PAST MEDICAL HISTORY: 1. Hypertension. 2. Hyperlipidemia. 3. Obesity. 4. Sleep apnea. CURRENT MEDICATIONS: 1. MiraLax. 2. Atenolol 25 milligrams daily. 3. Cardura. 4. Lasix. 5. Potassium. 6. Aldactone. ALLERGIES: Penicillin. PHYSICAL EXAMINATION: VITAL SIGNS: Afebrile, pulse 51, respiratory 21, blood pressure 133/79 and satting 94 on room air. GENERAL: A pleasant obese gentleman in no distress. NECK: No jugular venous distention. LUNGS: Clear to auscultation bilaterally. CARDIOVASCULAR Regular rate and rhythm. No murmurs appreciated. ABDOMEN: Benign. EXTREMITIES: No edema. Echocardiogram shows mildly reduced ejection fraction of 45% TO 50%. Head CT showed no acute intracranial abnormality. Carotid artery ultrasound showed no evidence of stenosis. LABORATORY DATA: White count 7.6, hematocrit 42.8, platelets 291,000. Sodium 143, potassium 4.1, chloride 108, bicarb 25.9, BUN 12, creatinine 0.87, glucose 97. Ammonia is 61. EKG shows sinus rhythm with nonspecific ST changes. Telemetry also shows sinus rhythm with sinus tachycardia without any significant dysrhythmia. IMPRESSION: 1. Possible syncopal episodes. The patient has had many episodes, averaging about one to two a week over several years, but more clustered in the last several weeks until his restless leg medication was discontinued. The history is not typically consistent with a cardiac arrhythmia, though it certainly must be considered. Thus far, we have not seen any significant arrhythmia on telemetry, and he has a 24-hour Holter monitor ongoing at the moment. Presuming no dysrhythmia seen between now and when he is ready for discharge, I would follow him up in the office for a 30-day Holter and potentially even a loop recorder unless he has a definitive episode while on telemetry, which would help us exclude a cardiac dysrhythmia as an etiology to his episodes. I will arrange for outpatient follow up, and if no dysrhythmia occurs, or further events, I will see him on an as-needed basis during this hospitalization. Thank you again for the opportunity to participate in this patient's care. MD CECY Guerrero/LEXUS /5:25 PM /6:12 PM
[2016-08-27] MEDS ORDERED: [UNRECOGNIZED DRUG - OTHER] IM (07:58)
--- NOTE | 2016-08-27 08:16 | MB ---
cc: MEHDI BLANCO M.D. DATE OF CONSULTATION: 08/23/2016 REASON FOR CONSULTATION Syncope. HISTORY OF PRESENT ILLNESS Mr. Eric is a very pleasant 75-year-old man with a history of hypertension, prostate cancer and sleep apnea. He has had several episodes of loss of consciousness for the past 3 weeks. He states that these almost always occur when he is standing upright. His states it looks as though he falls asleep and then he falls to the ground and then wakes up immediately back to normal, no tonic-clonic activity, no bladder incontinence. He frequently falls asleep during the day. His states that if she claps her hands and startles him he can snap out of it without loss of consciousness. PAST MEDICAL HISTORY 1. History of sleep apnea but does not use a C-PAP device. 2. History of prostate cancer. 3. Gastroesophageal reflux disease. 4. Hiatal hernia surgery. 5. Arthritis. 6. Cataract surgery. 7. Prostate biopsy. 8. L4 surgery. SOCIAL HISTORY Drinks one glass of wine daily. Does not smoke. MEDICATIONS Medications at home: 1. Pramipexole. 2. Atenolol. 3. Doxazosin. 4. Atorvastatin. 5. Lasix. 6. Potassium. 7. Spirolactone. NEUROLOGIC EXAMINATION VITAL SIGNS: Blood pressure is 139/76, pulse 71, respirations 18, temperature 98 degrees. Higher cortical functions are normal. Cranial nerves intact. Motor exam is normal with no focal deficit. Reflexes 2+ symmetric. No Babinski sign. He had several episodes during the exam where he suddenly fell asleep. His states that this is exactly what happens before he falls and passes out. She states that if she claps her hands she can usually snap him out of these spells. IMAGING STUDIES MRI of the brain shows no acute change present. CT of the brain shows no acute change. Carotid ultrasound shows mild plaquing, no significant stenosis. 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 LABORATORY DATA White count 10,900, hemoglobin 14.3 hematocrit 42.6% platelet count 288,000, sodium 141, potassium 4.2, chloride 109, CO2 24, BUN is 11, creatinine 0.91, glucose 116, AST 21, ALT 39, PT 10.4, INR 0.9, APTT 25.4. IMPRESSION A believe these spells were related to a sleep disorder, possibly related to hypersomnolence during his sleep apnea. I do not believe that they are seizures or TIAs. RECOMMENDATIONS Recommend referral to a sleep specialist after discharge. Could refer the patient to Dr. Ovi Becerril of my group for further evaluation of his sleep apnea following discharge. MD MAGGI Valdes/KRYS /9:28 PM /7:59 AM
--- NOTE | 2016-08-27 11:06 | HM ---
Date Performed: 08/25/2016 Time Performed: 17:48:00 HOOKUP DATE: 08/25/16 05:48:00 PM Sat ANALYSIS START TIME: 08/25/2016 5:53:00 PM ANALYSIS END TIME: 08/26/2016 5:34:09 PM PATIENT AGE: 75 PATIENT HEIGHT: 67 PATIENT WEIGHT: 235 DRUG LIST PATIENT DIAGNOSIS: SYNCOPE TEST NARRATIVE: The patient's average heart rate was 60 BPM. No episodes of tachycardia wer e noted. Heart rates less than 50 BPM were noted 2% of the time. No pauses exceeding 2.0 seconds were noted. 2 ventricular ectopics, which represented < 1% of the total beat count, were noted. The highest ventricular ectopic frequency occurred from 03:00 AM to 04:00 AM Sun. During this time 2 VE(s) occurred. Ventricular ectopics were observed as 2 isolated beat(s) only. No couplets or run s were noted. 1044 supraventricular ectopics, which represented 1% of the total beat count, were noted. The highest supraventricular ectopic frequency occurred from 12:00 AM to 01:00 AM Sun. Durin g this time 279 SVE(s) occurred. No episodes of ST depression (defined as -1.0 mm or more) were n oted in channel 1. No episodes of ST depression (defined as -1.0 mm or more) were noted in channel 2 . No episodes of ST depression (defined as -1.0 mm or more) were noted in channel 3. No diary e vents were reported by the patient. TEST INTERPRETATION: Holter monitor demonstrates Sinus rhythm with a rare PVC and occasional PAC. No repetative arrythmias were seen and no atrial fibrillation wa s present. Signed by : Ky Art ams
[2016-08-27 14:40] LABS: RAPID PLASMA REAGIN SCREEN NON-REACTIVE (NON-REACTVE)
[2016-08-27 14:41] LABS: ANA SCREEN NEG (NEG)
[2016-08-27 22:39] LABS: ALBUMIN SPE 3.75 GM/DL (3.50-5.00); ALPHA 1 GLOBULIN 0.19 GM/DL (0.11-0.29); ALPHA 2 GLOBULIN 0.84 GM/DL (0.22-1.00); BETA GLOBULINS (SPE) 0.73 GM/DL (0.53-1.03)
--- NOTE | 2016-08-29 13:42 | MH ---
cc: NICKOLAS SOLOMON MD DATE OF ADMISSION 08/23/2016 CHIEF COMPLAINT A syncopal episode multiple times. HISTORY OF PRESENT ILLNESS This is a 75-year male with past medical-surgical history significant for prostate cancer diagnosed five years ago, history of hypertension, hyperlipidemia, history of hiatal hernia status post repair, history of gastroesophageal reflux disease, history of back surgery, arthritis, severe sleep apnea, obstructive sleep apnea on C-PAP, history of bilateral cataract surgery, prostate biopsy in 2011, pilonidal cyst surgery who came to the ER at [facility]. He is on Lupron therapy for prostate cancer complaining of multiple syncopal episodes at home and he has had multiple falls. The patient stated that he was walking and all of a sudden, he had a syncopal episode and he fell down. He had a syncopal episode last night, fell and hit his head and the left hip. The patient reports that now his left hip pain is having a pain and he ambulated with the pain. He is not on any anticoagulation. He denies any headache or dizziness, blurred vision, any chest pain, shortness of breath, any nausea, vomiting, diarrhea, constipation, abdominal pain, any blood in stool or any black stool or any blood in urine or any other symptom. He denies any recent travel out of the [place]. Other than that, nothing significant. PAST MEDICAL AND SURGICAL HISTORY As stated above. SOCIAL HISTORY Denies smoking, drinking, taking any drugs. Lives at home with his . He is retired. He was working in [employer]. FAMILY HISTORY Significant on dad's side all family members have coronary artery disease. ALLERGIES PENICILLIN MEDICATIONS Include: 1. Primaplex orally 1 mg p.o. at bedtime 2. Atenolol 25 mg p.o. daily 3. Doxazosin 8 mg p.o. daily 4. Lipitor 20 mg p.o. at bedtime 5. Furosemide 20 mg twice a day 6. Potassium chloride ER 10 mEq b.i.d. 7. Spironolactone 50 mg p.o. daily REVIEW OF SYSTEMS Positive for obesity, fatigue, weakness, tiredness and having multiple episodes of syncope. All other review of systems are negative. PHYSICAL EXAMINATION This is a 75-year male sitting on the bed comfortably not in acute distress. VITAL SIGNS: Temperature 97.8, heart rate 65, respirations 18, blood pressure 128/78, O2 saturation 97% room air. HEENT: Normocephalic, atraumatic. EOMI. Oral mucosa moist. NECK: Supple. No visible thyromegaly or neck mass. Trachea central. CARDIOVASCULAR: Regular rate and rhythm. LUNGS: Respirations are clear to auscultation bilaterally. ABDOMEN: Soft, nontender. Bowel sounds audible. EXTREMITIES: No cyanosis or clubbing. Full range of motion of all extremities. NEUROLOGIC: Awake, alert, oriented x4. No focal deficits. SKIN: Warm and dry. PSYCH: The patient is cooperative. Mood and affect is normal. LABORATORY DATA Include CBC is totally unremarkable. BMP totally unremarkable except for chloride 109 high, GFR 81 low, glucose 116 high, calcium 8.4 low. LFTs are normal. Troponin I is less than 0.02 x1, total protein 5.9 low, albumin 3.0 low. PT 10.4, INR 0.9 and APTT 25.4. Urine examination done shows trace of occult blood, otherwise urinalysis normal. X-ray of the hip and pelvis done shows osteopenia with no acute fracture or malalignment. Ultrasound of the carotid done shows mild plaquing with no evidence of stenosis. Mass in the left lobe of the thyroid which appeared more prominent than on the prior exam in 2013. CT angiogram, this is nonspecific. MRI of the brain was done shows no acute intracranial process to explain clinical symptoms. There is no free air. CT brain was done shows no acute intracranial normality, multiple tiny calcified nodules within the bilateral ethmoid air cells and left frontal sinus ranging in size from 4-6 mm consistent with a probable osteoma. Chest x-ray Was done shows no acute disease. ASSESSMENT/PLAN This is a 75-year-old male who came to the ER diagnosed with multiple syncopal episodes of unknown cause. CT brain and MRA of the brain does not show anything acute. Carotid ultrasound does not show anything acute. I consulted neurology and cardiology for further recommendation. History of obstructive sleep apnea. I will consult pulmonary for further recommendation. History of prostate cancer. History of back pain and history of back pain and status post back surgery. History of gastroesophageal reflux disease. Protonix 40 mg p.o. daily. History of hypertension. Continue the home medication. Monitor blood pressure. History of hyperlipidemia. Continue home medication. DVT prophylaxis, SCDs. GI prophylaxis, Protonix 40 mg p.o. daily. Her check orthostatic blood pressure. We are going to manage the patient on a daily basis and make recommendations on a daily basis. Nickolas Solomon MD EA/SUZY /7:13 AM /1:25 PM
[2016-08-30 15:55] LABS: VITAMIN B6 3.4 ng/mL (2.1-21.7)
--- NOTE | 2016-09-17 06:00 | MD ---
cc: Cain ADMISSION DATE: 08/23/2016 DISCHARGE DATE: 08/26/2016 DISPOSITION Okay to discharge the patient home. CONDITION AT THE TIME OF DISCHARGE Satisfactory. ACTIVITY As tolerated. DIET Cardiac diet. ALLERGY TO PENICILLIN. DISCHARGE MEDICATIONS 1. Tylenol 650 q.6 hours p.r.n. pain. 2. Colace 100 mg twice a day. 3. Atenolol 25 mg p.o. daily. 4. Cardura 8 mg p.o. daily. 5. Furosemide 20 mg p.o. daily. 6. Potassium chloride 10 mEq p.o. daily. 7. Spironolactone 50 mg p.o. daily. 8. Lipitor 20 mg p.o. daily. 9. Aspirin 325 mg p.o. daily. ADMISSION DIAGNOSES 1. Syncopal episode. MRI/MRA of the brain was done and shows nothing acute. Carotid ultrasound does not show anything acute. Cardiology and Neurology have seen the patient, okay discharge per Cardiology and Neurology. 2. History of obstructive sleep apnea. 3. History of prostate cancer. 4. History of back pain status post back surgery. 5. History of gastroesophageal reflux disease. 6. History of hypertension. 7. History of hyperlipidemia. HOSPITAL COURSE This is a 75-year-old male admitted with syncopal episode, seen by Neurology and Cardiology. The patient remained stable. No acute event happened. The patient was discharged in a satisfactory condition. MRI of the brain done shows nothing acute. The patient remained stable. Further details in the medical record. Nickolas Quintanilla MD EA/LYNDON /11:29 AM /5:49 AM
== END 2016-08-26 18:57 | disposition home or self-care (01) ==
LOC: PHED 06:28 → PHEDA 09:22 → PH3A 12:16
PROVIDERS: ADMIT Specialist; ATTEND Specialist
DX: R55 Syncope and collapse (principal); G47.33 Obstructive sleep apnea (adult) (pediatric); I10 Essential (primary) hypertension; G25.81 Restless legs syndrome; K21.9 Gastro-esophageal reflux disease without esophagitis; C61 Malignant neoplasm of prostate; E78.5 Hyperlipidemia, unspecified; E78.00 Pure hypercholesterolemia, unspecified; R94.31 Abnormal electrocardiogram [ECG] [EKG]; Z79.818 Long term (current) use of other agents affecting estrogen receptors and estrogen levels; Z96.641 Presence of right artificial hip joint; W06.XXXA Fall from bed, initial encounter
CPT/HCPCS: 36600; 70450; 70553; 71010; 73502; 80053; 81001; 82140; 82550; 82552; 82607; 82805; 83735; 83880; 83921; 84165; 84207; 84425; 84439; 84443; 84484; 85025; 85610; 85652; 85730; 86038; 86592; 93005; 93225; 93226; 93306; 93880; 94760; 94762; 95819; 96374; 99285; A9579; G0378; J2270; J7030; 76937

== ENCOUNTER 2016-08-27 07:12 | Emergency (ER) | payer MEDICARE ==
[~2016-08-27] VITALS: Ht 170.2 cm; Wt 108.0 kg
[~2016-08-27 07:12] MED LIST changes: -ALBU1AER INH; -ATEN-100 PO; +ATEN25TA PO; +ATOR20TA15 PO; -ATOR20TA42 PO; -DOXA1 PO; +DOXA1TAB43 PO; -FURO10S PO; +FURO20TA PO; -IBUP-238 PO; -MIRA0.5T PO; -OMEP20TA39 PO; -POTA-267 PO; +POTA10TA2 PO; +PRAM1TAB PO; +SPIR50TA PO; -SPIR50TA21 PO; -[UNRECOGNIZED DRUG - CODE] IM
[2016-08-27 07:17] VITALS: BP 145/78; PULSE 85; RESP 16; TEMP 98.1; O2SAT 96
[2016-08-27] MEDS ORDERED: [UNRECOGNIZED DRUG - OTHER] IM (07:58)
[2016-08-27 08:12] VITALS: BP 146/78; PULSE 86; RESP 18; O2SAT 97
--- NOTE | 2016-08-27 08:38 | PD ---
HPI Chief Complaint: Syncope/Near-Syncope Time Seen by Provider: 08:07 Travel History International Travel<30 days: No Contact w/Intl Traveler<30days: No Traveled to known affect area: No History of Present Illness HPI This patient has frequent brief syncopal episodes. Reportedly about 40 times over the last 2 years. He was evaluated for that inpatient and discharged about 12 hours ago. He saw cardiology and neurology and had comprehensive evaluation including MRI and cardiac monitoring. He reports having another episode this morning and that caused him to stumble forward and he jammed his right foot underneath the dresser in his bedroom. He is worried that he broke his foot. He has pain in the forefoot. Worse with weightbearing. PFSH Past Medical History Arthritis: Yes Cancer: Yes (PROSTATE) Cardiovascular Problems: Yes (htn on meds) High Cholesterol: Yes Diabetes: No Diminished Hearing: No Endocrine: No Gastrointestinal Disorders: Yes (GERD) GERD: Yes Genitourinary: Yes (PROSTATE CANCER) Headaches: Yes Hepatitis: No Hiatal Hernia: Yes (REPAIRED) Hypertension: Yes Immune Disorder: No Musculoskeletal: Yes (BACK SX, ARTHRITIS) Neurologic: No Psychiatric: No Reproductive: No Respiratory: Yes (SLEEP APNEA/ CPAP at home) Immunizations Current: Yes Radiation Therapy: No Thyroid Disease: No Tetanus Vaccination: < 5 Years Influenza Vaccination: Yes Past Surgical History AICD: No Eye Surgery: Yes (EMMA. CATARACT EXTRACT.) Genitourinary Surgery: Yes (PROSTATE BX 2011, TURP 2015) Joint Replacement: Yes (right hip replacement) Neurologic Surgery: Yes (L4-3 SPUR EXC.) Pacemaker: No Tonsillectomy: Yes Other Surgery: Yes (HIATAL HERNIA, PILONIDAL CYST) Social History Alcohol Use: Yes (1 GLASS OF WINE OCCAS) Tobacco Use: No (hx of cigar use 10 yrs ago) Substance Use: No Allergies-Medications (Allergen,Severity, Reaction): Coded Allergies: Penicillin (Verified Allergy, Severe, Rash, 08/27/16) SWELLING HANDS Reported Meds & Prescriptions Reported Meds & Active Scripts Active Reported [loupron] 35 Mg IM Q 4 MONTHS Atenolol 25 Mg Tab 25 Mg PO DAILY Doxazosin (Doxazosin Mesylate) 8 Mg Tab 8 Mg PO DAILY Atorvastatin (Atorvastatin Calcium) 20 Mg Tab 20 Mg PO HS Furosemide 20 Mg Tab 20 Mg PO BID Potassium Chloride ER (Potassium Chloride) 10 Meq Tab 10 Meq PO BID Spironolactone 50 Mg Tab 50 Mg PO DAILY Review of Systems General / Constitutional: No: Fever HENT: No: Headaches Cardiovascular: No: Chest Pain or Discomfort Physical Exam Narrative Right foot: There is some tenderness over the dorsum of the forefoot. No open wound. Foot is neurovascular intact. No malleoli tenderness SKIN: Inspection shows no rash or ulcers. Palpation shows no induration or nodules. CARDIOVASCULAR: Regular rate and rhythm without murmur. Extremities showed no edema or varicosities. Data Data Last Documented VS Vital Signs Date Time Temp Pulse Resp B/P Pulse Ox O2 Delivery O2 Flow Rate FiO2 08/27/16 08:12 86 18 146/78 97 Room Air 08/27/16 07:17 98.1 Orders Foot, Complete ([id number]) (08/27/16 ) Electrocardiogram (08/27/16 08:06) MDM Medical Decision Making Medical Screen Exam Complete: Yes Emergency Medical Condition: Yes Medical Record Reviewed: Yes Differential Diagnosis Foot fracture, foot contusion, abrasion Narrative Course I have reviewed the patient's electronic medical record. I reviewed his right foot x-rays which are normal Recommend ice and elevation and using the walker to keep weight off of that foot The patient was advised to follow up with their physician and return if they worsen. Diagnosis Primary Impression: Contusion of right foot, initial encounter Additional Instructions: Ice and elevate right foot Use walker The patient was advised to follow up with their physician and return if they worsen. Med/Other Pt SpecificInfo: Other Disposition: 01 DISCHARGE HOME Condition: Stable Cristian Henderson MD Aug 27, 2016 08:38
--- NOTE | 2016-08-27 09:22 | RADHPO ---
EXAM DATE/TIME: 08/27/2016 08:51 [facility] COMPARISON: HIP LEFT (AP&LAT 2/3VWS) W AP PELVIS, August 23, 2016, 7:41. INDICATIONS : Right foot pain after falling. MEDICAL HISTORY : None. SURGICAL HISTORY : None. ENCOUNTER: Initial ACUITY: 2 days PAIN SCORE: 9/10 LOCATION: Right anterior foot. FINDINGS: Three view examination of the right foot demonstrates no soft tissue swelling, dislocation, or fractu re. The tarsal bones appear intact. The interphalangeal and metatarsophalangeal joints are intact. The calcaneus is intact. Bony mineralization is normal. CONCLUSION: 1. No acute bony abnormality is identified. Pastor Ca MD on August 27, 2016 at 9:19 Board Certified Radiologist. This report was verified electronically.
[2016-08-27 09:54] VITALS: BP 139/80
--- NOTE | 2016-08-27 10:29 | EKG ---
Date Performed: 08/27/2016 Time Performed: 08:06:38 PTAGE: 75 years EKG: Sinus arrhythmia rSr'(V1) - probable normal variant Poor R wave progression - probable norm al variant Borderline ECG Compared to prior tracing no significant change PREVIOUS TRACING : 08/23/2016 08.07 DOCTOR: Ky Gamboa Interpretating Date/Time 08/27/2016 10:26:37
== END 2016-08-27 09:55 | disposition home or self-care (01) ==
LOC: PHED 07:12
DX: S90.31XA Contusion of right foot, initial encounter (principal); R55 Syncope and collapse; R94.31 Abnormal electrocardiogram [ECG] [EKG]; I10 Essential (primary) hypertension; E78.00 Pure hypercholesterolemia, unspecified; G47.30 Sleep apnea, unspecified; Z87.39 Personal history of other diseases of the musculoskeletal system and connective tissue; Z85.46 Personal history of malignant neoplasm of prostate; Z86.79 Personal history of other diseases of the circulatory system; Z87.19 Personal history of other diseases of the digestive system; Z87.891 Personal history of nicotine dependence; W23.1XXA Caught, crushed, jammed, or pinched between stationary objects, initial encounter; Y92.003 Bedroom of unspecified non-institutional (private) residence as the place of occurrence of the external cause
CPT/HCPCS: 73630; 93005